=== PATIENT | female | born 1990 | race Caucasian/White ===

== ENCOUNTER 2017-09-22 06:32 | Emergency (ER) | payer SELFPAY ==
[2017-09-22 07:22] VITALS: BP 104/64
--- NOTE | 2017-09-22 08:54 | ED ---
Upper Extremity Pain - HPI Summary HPI Summary: Patient is an otherwise healthy 27-year-old female presenting to the ED with a concern for arm heaviness, weakness and tingling which has since resolved [employer]. She states upon awakening she felt okay and after approximately 20 minutes she states her arm began to feel numb, tingling and very heavy. She was unable to lift the arm for several minutes. After several minutes normal feeling resolves back to the arm into the hand and she is asymptomatic at this time. She denies any neurologic symptoms. Denies any visual changes, memory loss, confusion. She denies any head trauma or LOC. She has been otherwise healthy and states she has never had a cardiac issue. - History of Current Complaint Chief Complaint: EDExtremityUpper Stated Complaint: UNABLE TO MOVE RT ARM Time Seen by Provider: 09/22/17 06:34 Hx Obtained From: Patient Mechanism Of Injury: Unknown Timing: Intermittent, Lasting Minutes Severity Initially: Mild Severity Currently: None Pain Location: Arm, Forearm, Wrist, Hand Character: Unable to Describe - tingling, numbness Aggravating Factor(s): Nothing Alleviating Factor(s): Nothing Associated Signs & Symptoms: Positive: Negative Related History: Dominant Hand Right - Risk Factors Non-Orthopedic Risk Factor: Negative DVT Risk Factors: Negative Septic Arthritis Risk Factor: Negative Compartment Syndrome Risk Factors: Paresthesias - Allergies/Home Medications Allergies/Adverse Reactions: Allergies Allergy/AdvReac Type Severity Reaction Status Date / Time No Known Allergies Allergy Verified 09/22/17 06:36 PMH/Surg Hx/FS Hx/Imm Hx Previously Healthy: Yes - Immunization History Hx Pertussis Vaccination: No Immunizations Up to Date: Unable to Obtain/Confirm Infectious Disease History: No Infectious Disease History: Denies: Traveled Outside the [place] in Last 30 Days - Social History Occupation: Employed Full-time Lives: With Family Alcohol Use: None Hx Substance Use: No Substance Use Type: Reports: None Hx Tobacco Use: No Smoking Status (MU): Never Smoked Tobacco Review of Systems Constitutional: Negative Negative: Fever, Chills, Fatigue Negative: Palpitations, Chest Pain Negative: Shortness Of Breath, Cough Genitourinary: Negative Positive: no symptoms reported, see HPI Negative: Arthralgia, Myalgia Negative: Rash, Bruising Negative: Headache, Weakness, Paresthesia - resolved [employer], Numbness, Syncope Psychological: Normal All Other Systems Reviewed And Are Negative: Yes Physical Exam Triage Information Reviewed: Yes Vital Signs On Initial Exam: Initial Vitals Temp Pulse Resp BP Pulse Ox 97.4 F 68 16 135/87 99 09/22/17 06:34 09/22/17 06:34 09/22/17 06:34 09/22/17 06:34 09/22/17 06:34 Vital Signs Reviewed: Yes Appearance: Positive: Well-Appearing, Well-Nourished Skin: Positive: Warm, Skin Color Reflects Adequate Perfusion Head/Face: Positive: Normal Head/Face Inspection Eyes: Positive: EOMI, RADHA, Conjunctiva Clear Neck: Positive: Supple, Nontender, No Lymphadenopathy Respiratory/Lung Sounds: Positive: Clear to Auscultation, Breath Sounds Present Cardiovascular: Positive: Normal, RRR Musculoskeletal: Positive: Strength/ROM Intact. Negative: Edema Left, Edema Right Neurological: Positive: Sensory/Motor Intact, Alert, Oriented to Person Place, Time, Normal Gait, Speech Normal Psychiatric: Positive: Normal, Affect/Mood Appropriate AVPU Assessment: Alert Diagnostics - Vital Signs Vital Signs Temp Pulse Resp BP Pulse Ox 09/22/17 07:24 98.2 F 67 16 104/64 100 09/22/17 07:18 104/64 09/22/17 07:00 67 98 09/22/17 06:49 65 99 09/22/17 06:48 59 114/72 100 09/22/17 06:34 97.4 F 68 16 135/87 99 - Laboratory Lab Statement: Any lab studies that have been ordered have been reviewed, and results considered in the medical decision making process. Course/Dx - Course Course Of Treatment: During the course of treatment, I have evaluated the patient for a possible radial nerve palsy. She states the nerve pain started up to the upper arm and radiated down into the forearm including the fingers. She feels she may have had a wrist drop as well. On physical examination, pulses +2 intact bilaterally, good blood flow, denies any numbness or tingling in the fingertips. Sensation intact. Strength intact. Denies any weakness. Denies any neck pain or shoulder pain. Full range of motion to the neck, shoulder, elbow and wrist. She states she is completely asymptomatic at this time. It is difficult to distinguish at this time between the brachioradialis radial neuropathy or an ulnar innervated weakness. Due to patient being asymptomatic and otherwise normal exam, patient will be discharged home with return precautions. She understands these and voices no concerns at this time. - Diagnoses Provider Diagnoses: Acute radial nerve palsy Discharge - Sign-Out/Discharge Documenting (check all that apply): Discharge/Admit/Transfer - Discharge Plan Condition: Stable Disposition: HOME Patient Education Materials: Radial Nerve Palsy (ED) Referrals: No Primary Care Phys,NOPCP [Primary Care Provider] - Additional Instructions: : The level bilaterally is 1 is by is And giving you information about radial nerve palsy. Since your symptoms have resolved, there is no treatment you must do at this point If symptoms DO NOT resolve on their own - you may return to the ED - Billing Disposition and Condition Condition: STABLE Disposition: HOME
== END 2017-09-22 07:24 | disposition home or self-care (01) ==
LOC: ED 06:32
DX: G56.31 Lesion of radial nerve, right upper limb (principal)
CPT/HCPCS: 99281